=== PATIENT | female | born 1985 | race Caucasian/White ===

== ENCOUNTER 2016-06-08 10:11 | Emergency (ER) | payer OTHER ==
[~2016-06-08] VITALS: Ht 172.7 cm; Wt 68.0 kg
[2016-06-08] MEDS ORDERED: LIDOCAINE 1% / SOD BICARB 8.4% 20 ML VIAL. IJ ONE (10:30)
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
[2016-06-08] MEDS ORDERED: IBUPROFEN 600 MG TABLET. PO ONE ×2 (10:49→11:30)
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
[2016-06-08] MEDS ORDERED: AMOX500C PO (12:06)
[2016-06-08] MEDS ORDERED: NAPR550T PO (12:06)
[2016-06-08] MEDS ORDERED: HYDR-971 PO (12:06)
[2016-06-08 12:13] VITALS: BP 132/75
[2016-06-08] MEDS ORDERED: HYDROCODONE/APAP 5/325MG TABLET. PO ONE (12:45)
[2016-06-08] MEDS ORDERED: ONDANSETRON ODT 4 MG TAB.RAPDIS PO ONE (12:45)
== END 2016-06-08 12:13 | disposition home or self-care (01) ==
LOC: ER 10:11 → EEVIPCON 10:11 → ER 12:13
DX: S01.511A Laceration without foreign body of lip, initial encounter (principal); H11.32 Conjunctival hemorrhage, left eye; S00.93XA Contusion of unspecified part of head, initial encounter; Z88.7 Allergy status to serum and vaccine; Y04.0XXA Assault by unarmed brawl or fight, initial encounter; Y93.89 Activity, other specified; Y99.8 Other external cause status; Y92.89 Other specified places as the place of occurrence of the external cause
CPT/HCPCS: 12013; 70450; 70486; 72040; 99284; Q0162

== ENCOUNTER 2016-06-28 16:06 | Emergency (ER) | payer OTHER ==
[~2016-06-28] VITALS: Ht 172.7 cm; Wt 65.8 kg
[~2016-06-28 16:06] MED LIST: AMOX500C PO; HYDR-971 PO; NAPR550T PO
[2016-06-28 17:00] VITALS: BP 118/66
[2016-06-28] MEDS ORDERED: CEPH500C PO (17:51)
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
== END 2016-06-28 18:06 | disposition home or self-care (01) ==
LOC: ER 16:06
DX: S01.511D Laceration without foreign body of lip, subsequent encounter (principal); X58.XXXD Exposure to other specified factors, subsequent encounter; Y92.89 Other specified places as the place of occurrence of the external cause; Y99.8 Other external cause status
CPT/HCPCS: 99283